=== PATIENT | female | born 1990 | race Caucasian/White ===

== ENCOUNTER 2021-05-22 05:27 | Inpatient (IN) ==
[2021-05-22] MEDS ORDERED: Naloxone 0.4 MG/ML INJ IVP PRN (05:44)
[2021-05-22] MEDS ORDERED: Famotidine 20 MG/2 ML VIAL IVP PRN (05:44)
[2021-05-22] MEDS ORDERED: Metoclopramide 10 MG/2 ML VIAL IVP PRN ×2 (05:44→12:54)
[2021-05-22] MEDS ORDERED: Ringers Solution, Lactated 1,000 ML IVC SCH (05:45)
[2021-05-22] MEDS ORDERED: CeFAZolin Syr 2,000MG/20 ML 2,000 MG/20 ML SYRINGE IVPB ONE (06:00)
[2021-05-22] MEDS ORDERED: *HR* Labetalol 20 MG/4 ML SYRINGE IVP PRN (06:29)
[2021-05-22] MEDS ORDERED: Promethazine 6.25 MG in Water for inj. (sterile) 20 ML IVPB PRN (06:29)
[2021-05-22] MEDS ORDERED: *HR* HYDROmorphone PF 0.5 MG/0.5 ML SYRINGE IVP PRN (06:29)
[2021-05-22] MEDS ORDERED: Lidocaine -MPF 2% 5 ML VIAL ONE (06:39)
[2021-05-22] MEDS ORDERED: Ondansetron 4 MG/2 ML VIAL ONE (06:39)
[2021-05-22 06:40] LABS: Influenza A PCR Negative (Negative); Influenza B PCR Negative (Negative); Resp. Syncytial Virus PCR Negative (Negative)
[2021-05-22 06:43] LABS: SARS-CoV-2 by PCR (In House) Negative (Negative)
[2021-05-22] MEDS ORDERED: ceFAZolin 3,000 MG in Water for inj. (sterile) 30 ML IVP ONE (06:52)
[2021-05-22] MEDS ORDERED: *HR* FentaNYL (PF) 100 MCG/2 ML VIAL ONE (07:55)
[2021-05-22] MEDS ORDERED: *HR* Morphine Sulfate/PF 10 MG/10 ML AMPUL ONE (07:55)
[2021-05-22 07:58] LABS: Basophils % 0.4 %; Eosinophils # 0.2 K/mcL (0.0-0.6); Eosinophils % 2.2 %; Hematocrit 37.9 % (35.3-44.9); Lymphocytes # 1.6 K/mcL (0.6-4.6); Lymphocytes % 15.6 %; Mean Corpuscular HGB Conc 31.7 g/dL (31.6-35.5); Mean Corpuscular Hemoglobin 27.8 pg (28.0-33.3); Mean Corpuscular Volume 87.9 fL (83.0-100.0); Mean Platelet Volume 9.4 fL (9.4-12.4); Monocytes # 0.5 K/mcL (0.0-1.3); Neutrophils # 7.8 K/mcL (1.6-8.9); Platelet Count 318 K/mcL (140-400); Red Blood Count 4.31 M/mcL (3.82-4.97); Red Cell Distribution Width 15.4 % (11.5-14.5); Segmented Neutrophils % 75.8 %; White Blood Count 10.3 K/mcL (4.3-11.1)
[2021-05-22] MEDS ORDERED: CeFAZolin Syr 3,000MG/30 ML 3,000 MG/30 ML SYRINGE IVPB ONE (08:00)
[2021-05-22] MEDS ORDERED: Ringers Solution, Lactated 1,000 ML ONE (08:14)
[2021-05-22] MEDS ORDERED: Acetaminophen IV 1,000 MG/100 ML BAG IVPB ONE (08:47)
[2021-05-22] MEDS ORDERED: Ketorolac 30 MG/ML VIAL ONE (08:48)
[2021-05-22] MEDS ORDERED: Albuterol 2.5 MG/3 ML NEBULIZER IH ONE (09:52)
[2021-05-22 09:59] LABS: Amphetamine Screen,Urine Negative ng/mL (Cutoff=1000); Barbiturate Screen,Urine Negative ng/mL (Cutoff=200); Benzodiazepines Screen,Urine Negative ng/mL (Cutoff=200); Cannabinoid Screen,Urine Negative ng/mL (Cutoff = 50); Cocaine Screen,Urine Negative ng/mL (Cutoff= 300); Opiate Screen,Urine Negative ng/mL (Cutoff=300); Phencyclidine Screen,Urine Negative ng/mL (Cutoff=25)
[2021-05-22 12:35] LABS: Protein/Creatinine Ratio,Urine 0.32 mg/mg (0.00-0.20)
[2021-05-22 12:39] LABS: Basophils # 0.1 K/mcL (0.0-0.2); Basophils % 0.4 %; Eosinophils # 0.1 K/mcL (0.0-0.6); Eosinophils % 0.4 %; Hematocrit 38.6 % (35.3-44.9); Hemoglobin 12.2 g/dL (11.5-15.4); Immature Granulocytes % 0.6 % (0-4); Lymphocytes # 1.8 K/mcL (0.6-4.6); Lymphocytes % 10.5 %; Mean Corpuscular HGB Conc 31.6 g/dL (31.6-35.5); Mean Corpuscular Hemoglobin 27.7 pg (28.0-33.3); Mean Corpuscular Volume 87.5 fL (83.0-100.0); Mean Platelet Volume 9.3 fL (9.4-12.4); Monocytes # 0.7 K/mcL (0.0-1.3); Platelet Count 306 K/mcL (140-400); Red Blood Count 4.41 M/mcL (3.82-4.97); Red Cell Distribution Width 15.3 % (11.5-14.5); Segmented Neutrophils % 84.1 %
[2021-05-22 12:45] LABS: White Blood Count 16.7 K/mcL (4.3-11.1)
[2021-05-22 12:53] LABS: Alanine Aminotransferase 16 Units/L (7-52); Aspartate Amino Transferase 22 Units/L (13-39); BUN/Creatinine Ratio 20 (6-26); Blood Urea Nitrogen 10 mg/dL (6-20); Lactate Dehydrogenase 236 Units/L (140-271); Uric Acid 4.5 mg/dL (2.3-7.6); eGFR For African Americans > 60 (> 60); eGFR For Non-African Americans > 60 (> 60)
[2021-05-22] MEDS ORDERED: Acetaminophen 325 MG TABLET PO SCH (12:54)
[2021-05-22] MEDS ORDERED: Ondansetron 4 MG/2 ML VIAL IVP PRN (12:54)
[2021-05-22] MEDS ORDERED: Rho Immune Globulin 1,500 UNIT SYRINGE IM ONE ×2 (12:54)
[2021-05-22] MEDS: Ibuprofen 600 MG TABLET PO SCH ×2 (13:21→19:26)
[2021-05-22] MEDS: Acetaminophen 325 MG TABLET PO SCH ×2 (13:22→19:27)
[2021-05-22] MEDS: cephALEXin 500 MG CAPSULE PO SCH ×2 (16:38→21:37)
[2021-05-22] MEDS: *HR* OxyCODONE Immed Rel 5 MG TABLET PO PRN ×2 (16:38→21:37)
[2021-05-22] MEDS: Oxytocin 20 units/ LR 1000 mL 20 UNIT/1,000 ML BAG IVC SCH (19:27)
[2021-05-22] MEDS: *HR* Enoxaparin 60 MG/0.6 ML SYRINGE SQ SCH (21:38)
[2021-05-22] MEDS: Simethicone 80 MG TAB.CHEW PO PRN (21:43)
[2021-05-23] MEDS: Acetaminophen 325 MG TABLET PO SCH ×4 (02:21→22:00)
[2021-05-23] MEDS: *HR* OxyCODONE Immed Rel 5 MG TABLET PO PRN ×3 (02:21→18:33)
[2021-05-23] MEDS: Ibuprofen 600 MG TABLET PO SCH ×4 (02:21→22:00)
[2021-05-23] MEDS: Simethicone 80 MG TAB.CHEW PO PRN ×3 (06:12→20:04)
[2021-05-23 08:11] LABS: Basophils # 0.1 K/mcL (0.0-0.2); Basophils % 0.4 %; Eosinophils # 0.2 K/mcL (0.0-0.6); Eosinophils % 1.8 %; Hematocrit 33.1 % (35.3-44.9); Immature Granulocytes % 0.8 % (0-4); Lymphocytes # 2.2 K/mcL (0.6-4.6); Lymphocytes % 17.1 %; Mean Corpuscular Volume 87.6 fL (83.0-100.0); Mean Platelet Volume 9.4 fL (9.4-12.4); Monocytes # 0.5 K/mcL (0.0-1.3); Monocytes % 4.1 %; Neutrophils # 9.9 K/mcL (1.6-8.9); Platelet Count 275 K/mcL (140-400); Red Blood Count 3.78 M/mcL (3.82-4.97); Red Cell Distribution Width 15.1 % (11.5-14.5); Segmented Neutrophils % 75.8 %
[2021-05-23 08:13] LABS: Hemoglobin 10.6 g/dL (11.5-15.4)
[2021-05-23] MEDS: cephALEXin 500 MG CAPSULE PO SCH ×3 (08:53→20:04)
[2021-05-23] MEDS: Prenatal Vit/FA 1 EACH TABLET PO SCH (08:53)
[2021-05-23] MEDS: Loratadine 10 MG TABLET PO SCH (08:53)
[2021-05-23] MEDS: *HR* Enoxaparin 60 MG/0.6 ML SYRINGE SQ SCH ×2 (08:53→20:04)
[2021-05-23] MEDS ORDERED: Prenatal Vit/FA 1 EACH TABLET PO SCH (09:00)
[2021-05-23] MEDS: Ringers Solution, Lactated 1,000 ML IVC SCH ×2 (14:46→14:47)
[2021-05-23] MEDS: Oxytocin 20 units/ LR 1000 mL 20 UNIT/1,000 ML BAG IVC SCH ×2 (14:51→14:52)
[2021-05-24] MEDS: *HR* OxyCODONE Immed Rel 5 MG TABLET PO PRN ×2 (00:42→06:06)
[2021-05-24] MEDS: Acetaminophen 325 MG TABLET PO SCH (04:00)
[2021-05-24] MEDS: Ibuprofen 600 MG TABLET PO SCH (04:01)
[2021-05-24 08:29] VITALS: BP 124/76; PULSE 90; TEMP 97.8; O2SAT 96
[2021-05-24] MEDS: Loratadine 10 MG TABLET PO SCH (09:59)
[2021-05-24] MEDS: Simethicone 80 MG TAB.CHEW PO PRN (09:59)
[2021-05-24] MEDS: *HR* Enoxaparin 60 MG/0.6 ML SYRINGE SQ SCH (09:59)
[2021-05-24] MEDS: Prenatal Vit/FA 1 EACH TABLET PO SCH (09:59)
== END 2021-05-24 11:32 | disposition home or self-care (01) | DRG 787 ==
LOC: 1NENULAB 05:27 → 1NENUOBS 12:37
PROVIDERS: ADMIT Student in an Organized Health Care Education/Training Program; ATTEND Student in an Organized Health Care Education/Training Program